=== PATIENT | female | born 1975 | race Caucasian/White ===

== ENCOUNTER 2022-06-29 16:15 | Outpatient (RCR) | payer OTHER, SELFPAY | END 2022-11-10 13:55 | disposition home or self-care (01) | PROVIDERS: PCP Family Medicine; Visit Provider Family Medicine | DX: G57.02 Lesion of sciatic nerve, left lower limb (principal); Z51.89 Encounter for other specified aftercare | CPT/HCPCS: 97110; 97140; 97161 ==

== ENCOUNTER 2024-03-16 08:20 | Outpatient (CLI) | payer OTHER, SELFPAY | END 2024-03-16 08:21 | disposition home or self-care (01) | LOC: NFLDREF 03-17 10:56 | PROVIDERS: PCP Family Medicine; Referring Provider Family Medicine; Visit Provider Family Medicine | DX: E78.5 Hyperlipidemia, unspecified (principal); E03.9 Hypothyroidism, unspecified; Z13.228 Encounter for screening for other metabolic disorders | CPT/HCPCS: 80053; 80061; 84439; 84443 ==

== ENCOUNTER 2024-05-26 14:31 | Outpatient (CLI) | payer OTHER, SELFPAY ==
--- NOTE | 2024-05-26 14:40 | CRLHL7_ITS ---
For Patients: As a result of the Century Cures Act, medical imaging exams and procedure reports are released immediately into your electronic medical record. You may view this report before your referring provider. If you have questions, please contact your health care provider. BILATERAL SCREENING MAMMOGRAM WITH COMPUTER-AIDED DETECTION AND TOMOSYNTHESIS TECHNIQUE: CC and MLO views were obtained. These mammographic images have been obtained using full-field digital technique. These mammographic images were interpreted with the benefit of computer-aided detection. Breast Tomosynthesis was used in this interpretation. COMPARISON FILM: 06/02/21, 05/30/20, 05/19/19. FINDINGS: There are scattered areas of fibroglandular density. IMPRESSION: There is no radiographic evidence for malignancy. ASSESSMENT: BI-RADS Category 1: Negative RECOMMENDATION: Routine screening mammogram in 1 year. A lay language report of this examination will be provided to the patient. Sam Mack M.D. Diagnostic Radiologist [email or web address] SP/Dictated by: Sam Mack MD @ 05/29/2024 9:36:00 AM (Electronically Signed)
== END 2024-05-26 14:32 | disposition home or self-care (01) ==
LOC: MAMMO 14:32
PROVIDERS: PCP Family Medicine; Visit Provider Family Medicine
DX: Z12.31 Encounter for screening mammogram for malignant neoplasm of breast (principal)
CPT/HCPCS: 77063; 77067